=== PATIENT | male | born 1945 | race Caucasian/White ===

== ENCOUNTER 2023-03-24 11:55 | Day surgery (SDC) | payer OTHER ==
[~2023-03-24] VITALS: Ht 170.2 cm; Wt 89.5 kg
[~2023-03-24 11:55] MED LIST: ACETYLCHOLINE OPHTH SOLN 1% 2ML (MIOCHOL-E) As Ordered ONE; BSS IRRIG/VANCO(10MG)/TOBRA(5MG)/EPINEPH(1:1000-0.5CC)500ML BAG-ORONLY IR ONE; BUDE10.7 INH; CALC500T52 PO; CEFUROXIME 1MG/0.1ML INTRACAMERAL INJ As Ordered ONE; CYCLOPENTOLATE 1% OPHTH SOLN 2ML BTL OS SCH; ECOT81TA5 PO; GABA-282 PO; GALZ25CA PO; KP F1200 PO; LIDOCAINE 1% SDV 5ML VIAL As Ordered ONE; LIDOCAINE 3.5 % 1ML OPHTH TOPICAL GEL OU ONE; LISI10TA24 PO; OFLOXACIN 0.3 % (OCUFLOX) OPTH SOL 5ML OS ONE; OSTETAB2 PO; PHENYLEPHRINE 10% OPHTH SOL 5ML OS PRN; PHENYLEPHRINE 2.5% OPHTH SOL 2ML OS SCH; TROPICAMIDE 1% OPHTH SOLN 15ML OS SCH; VITA100093 PO
[2023-03-24] MEDS ORDERED: LIDOCAINE 1% SDV 5ML VIAL SC PRN (12:05)
[2023-03-24] MEDS ORDERED: MIDAZOLAM INJ 2MG/2ML VIAL As Ordered ONE (12:57)
[2023-03-24] MEDS ORDERED: fentaNYL 100 MCG/2 ML INJECTION As Ordered ONE (12:58)
[2023-03-24 14:10] VITALS: BP 128/73; TEMP 96.1; O2SAT 96
== END 2023-03-24 14:38 | disposition home or self-care (01) ==
LOC: M SDC 11:55
PROVIDERS: ATTEND Ophthalmology
DX: H25.12 Age-related nuclear cataract, left eye (principal); H57.03 Miosis; G47.30 Sleep apnea, unspecified; Z79.899 Other long term (current) drug therapy
CPT/HCPCS: 66982; J0697; J2250; J3010; V2632

== ENCOUNTER 2023-04-07 06:39 | Day surgery (SDC) | payer OTHER ==
[~2023-04-07] VITALS: Ht 170.2 cm; Wt 89.8 kg
[~2023-04-07 06:39] MED LIST changes: -ACETYLCHOLINE OPHTH SOLN 1% 2ML (MIOCHOL-E) As Ordered ONE; +CYCLOPENTOLATE 1% OPHTH SOLN 2ML BTL OD SCH; -CYCLOPENTOLATE 1% OPHTH SOLN 2ML BTL OS SCH; +OFLOXACIN 0.3 % (OCUFLOX) OPTH SOL 5ML OD ONE; -OFLOXACIN 0.3 % (OCUFLOX) OPTH SOL 5ML OS ONE; +PHENYLEPHRINE 10% OPHTH SOL 5ML OD PRN; -PHENYLEPHRINE 10% OPHTH SOL 5ML OS PRN; +PHENYLEPHRINE 2.5% OPHTH SOL 2ML OD SCH; -PHENYLEPHRINE 2.5% OPHTH SOL 2ML OS SCH; +TROPICAMIDE 1% OPHTH SOLN 15ML OD SCH; -TROPICAMIDE 1% OPHTH SOLN 15ML OS SCH
[2023-04-07] MEDS ORDERED: fentaNYL 100 MCG/2 ML INJECTION As Ordered ONE (07:10)
[2023-04-07] MEDS ORDERED: MIDAZOLAM INJ 2MG/2ML VIAL As Ordered ONE (07:11)
[2023-04-07 08:30] VITALS: BP 126/72; TEMP 97.5; O2SAT 94
== END 2023-04-07 08:46 | disposition home or self-care (01) ==
LOC: M SDC 06:39 → EDUNIT# 12:00
PROVIDERS: ATTEND Ophthalmology
DX: H26.9 Unspecified cataract (principal); H57.03 Miosis; I10 Essential (primary) hypertension; J45.909 Unspecified asthma, uncomplicated; G47.30 Sleep apnea, unspecified; Z79.899 Other long term (current) drug therapy; Z79.82 Long term (current) use of aspirin
CPT/HCPCS: 66982; J0697; J2250; J3010; V2632